=== PATIENT | male | born 1965 | race Caucasian/White ===

== ENCOUNTER 2017-10-20 08:11 | Emergency (ER) | payer BC, OTHER ==
[2017-10-20 08:28] VITALS: BP 141/86
--- NOTE | 2017-10-20 09:02 | UC ---
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 States nasal congestion making him nauseated. Also with bilateral ear pain. Uncontrollable cough x 4 weeks, congestion x 5 days. " Has h/o sinus infections and sx feel consistent. he was sick for 1 mo and sx all resolved w/o any prescription meds ~ 10 days ago and sx returned severely 4 days ago. no cough now though. b/l eye pain/ congestion. no fevers/wheezing or cough. -amox usually works for him. has humidifier on. uses netti pot daily. 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 [employer] - History of Current Complaint Chief Complaint: UCRespiratory Stated Complaint: SINUS, EARS, SORE THROAT Time Seen by Provider: 10/20/17 08:19 - Allergies/Home Medications Allergies/Adverse Reactions: Allergies Allergy/AdvReac Type Severity Reaction Status Date / Time Pseudoephedrine Allergy Difficulty Verified 10/20/17 08:21 [From Sudafed] Breathing Triprolidine [From Actifed] Allergy Difficulty Verified 10/20/17 08:21 Breathing Home Medications: Home Medications Aspirin [Aspirin 81 MG TAB] 81 mg PO DAILY 10/20/17 [History Confirmed 10/20/17] PMH/Surg Hx/FS Hx/Imm Hx Previously Healthy: Yes Endocrine History: Dyslipidemia - Surgical History Surgical History: Yes Surgery Procedure, Year, and Place: 2010 L knee replaced. 11/18/12 wisdom teeth extraction under anesthesia with pre and post prophylactic abx tx. hernia x 2 - Family History Known Family History: Positive: Diabetes - Social History Alcohol Use: Weekly Substance Use Type: None Smoking Status (MU): Former Smoker Type: Cigarettes Amount Used/How Often: <1 PPD Length of Time of Smoking/Using Tobacco: 14 Years Have You Smoked in the Last Year: No When Did the Patient Quit Smoking/Using Tobacco: 1999 - Immunization History Most Recent Influenza Vaccination: 2017 Most Recent Tetanus Shot: 2009 Review of Systems Constitutional: Negative Skin: Negative Eyes: Negative, Other - pain behind eyes ENT: Sinus Congestion, Sinus Pain/Tenderness Respiratory: Negative Cardiovascular: Negative Gastrointestinal: Negative Genitourinary: Negative Motor: Negative Neurovascular: Negative Musculoskeletal: Negative Neurological: Negative Psychological: Negative Is Patient Immunocompromised?: No All Other Systems Reviewed And Are Negative: Yes Physical Exam Triage Information Reviewed: Yes Appearance: Well-Appearing, No Pain Distress - very pleasant. Vital Signs: Initial Vital Signs Temp 98.2 F 10/20/17 08:23 Pulse 86 10/20/17 08:23 Resp 20 10/20/17 08:23 BP 141/86 10/20/17 08:23 Pulse Ox 95 10/20/17 08:23 Vital Signs Reviewed: Yes Eye Exam: Normal ENT: Positive: Pharyngeal erythema - +PND, Nasal congestion, TMs normal, Sinus tenderness - B/L frontal tenderness Dental Exam: Normal Neck exam: Normal Neck: Positive: Supple, Nontender, No Lymphadenopathy Respiratory Exam: Normal Respiratory: Positive: Lungs clear, Normal breath sounds, No respiratory distress, No accessory muscle use. Negative: Crackles, Rhonchi, Stridor, Wheezing Cardiovascular Exam: Normal Cardiovascular: Positive: RRR, No Murmur, Pulses Normal Abdomen Description: Positive: Nontender, Soft Musculoskeletal Exam: Normal Neurological Exam: Normal Psychological Exam: Normal Skin Exam: Normal UC Diagnostic Evaluation - Laboratory O2 Sat by Pulse Oximetry: 95 Respiratory Course/Dx - Course Course Of Treatment: Discussed that the history of sx resolving and then recurring with sudden onset as he has described is c/w bacterial infection. - Differential Dx/Diagnosis Differential Diagnosis/HQI/PQRI: Bronchitis, Laryngitis, Lower Resp Infection, Sinusitis Provider Diagnoses: Sinusitis Discharge - Discharge Plan Condition: Stable Disposition: HOME Prescriptions: Amoxicillin PO (*) [Amoxicillin 875 MG (*)] 875 mg PO BID #20 tab Patient Education Materials: Sinusitis (ED) Referrals: Non Staff,Doctor [Primary Care Provider] - If Needed Additional Instructions: Make sure to continue to take a probiotic daily while on antibiotics to help prevent a potential complication of antibiotic use called c diff. Some well known brands that can be found OTC are florastor, align and [employer] [facility]. Make sure to complete the entire prescription unless advised otherwise by your health care provider. -Follow up with your PCP JARON Santa if symptoms increase or persist.
== END 2017-10-20 09:08 | disposition home or self-care (01) ==
LOC: UCCORT 08:11
DX: J32.9 Chronic sinusitis, unspecified (principal); E78.5 Hyperlipidemia, unspecified; Z87.891 Personal history of nicotine dependence
CPT/HCPCS: 99212; G0463

== ENCOUNTER 2018-10-14 12:44 | Emergency (ER) | payer BC, OTHER ==
--- NOTE | 2018-10-14 13:28 | UC ---
Throat Pain/Nasal Ernie HPI - HPI Summary HPI Summary: 53 y/o male presents to the urgent care c/o sore throat, sinus congestion, w/ clear nasal discharge, body aches, [place], low grade fever for the past 4 days. Pt reports he has a new grandson that would like to visit, but he wants to make lou he doesn't have the flu or strep. Pt has done Netti pot which has helped relief his congestion. Pain w/ swallowing is 2/10. He took ibuprofen yesterday since temp was 99.6F. Nothing today. Pt denies SOB, wheezing, chest pain, abdominal pain, N/V/D, neck pain or rash. - History of Current Complaint Stated Complaint: SINUS CONGESTION Time Seen by Provider: 10/14/18 13:27 Hx Obtained From: Patient Onset/Duration: Gradual Onset, Lasting Days - 4 days, Still Present Severity: Mild Pain Intensity: 2 Pain Scale Used: 0-10 Numeric Cough: Other: - PND Associated Signs & Symptoms: Positive: Hoarseness, Sinus Discomfort, Nasal Discharge - clear. Negative: Dysphagia, Wheezing, Fever, Vomiting Related History: Seasonal Allergies - Epiglottits Risk Factors Epiglottis Risk Factors: Negative - Allergies/Home Medications Allergies/Adverse Reactions: Allergies Allergy/AdvReac Type Severity Reaction Status Date / Time pseudoephedrine Allergy Unknown Difficulty Verified 10/14/18 13:27 [From Sudafed] Breathing triprolidine [From Actifed] Allergy Unknown Difficulty Verified 10/14/18 13:27 Breathing Home Medications: Home Medications Losartan Potassium [Cozaar] 50 mg PO DAILY 10/14/18 [History Confirmed 10/14/18] PMH/Surg Hx/FS Hx/Imm Hx Previously Healthy: Yes Endocrine History: Dyslipidemia Cardiovascular History: Hypertension - Surgical History Surgical History: Yes Surgery Procedure, Year, and Place: 2010 L knee replaced. 11/18/12 wisdom teeth extraction under anesthesia with pre and post prophylactic abx tx. hernia x 2 - Family History Known Family History: Positive: Diabetes - Social History Occupation: Employed Full-time Lives: With Family Alcohol Use: Weekly Substance Use Type: None Smoking Status (MU): Former Smoker Type: Cigarettes Amount Used/How Often: <1 PPD Length of Time of Smoking/Using Tobacco: 14 Years Have You Smoked in the Last Year: No When Did the Patient Quit Smoking/Using Tobacco: 1999 - Immunization History Most Recent Influenza Vaccination: 2017 Most Recent Tetanus Shot: 2009 Review of Systems All Other Systems Reviewed And Are Negative: Yes Constitutional: Positive: Other - body aches Skin: Positive: Negative Eyes: Positive: Negative ENT: Positive: Sore Throat, Nasal Discharge - clear, Sinus Congestion, Sinus Pain/Tenderness, Other - PND Respiratory: Positive: Negative Cardiovascular: Positive: Negative Gastrointestinal: Positive: Negative Genitourinary: Positive: Negative Motor: Positive: Negative Neurovascular: Positive: Negative Musculoskeletal: Positive: Myalgia Neurological: Positive: Negative Psychological: Positive: Negative Is Patient Immunocompromised?: No Physical Exam - Summary Physical Exam Summary: VITAL SIGNS: Reviewed. GENERAL: Patient is a well developed and nourished obese male who is sitting comfortable in the examining table. Patient is not in any acute respiratory distress. HEAD AND FACE: No signs of trauma. No ecchymosis, hematomas or skull depressions. No sinus tenderness. EYES: PERRLA, EOMI x 2, No injected conjunctiva, no nystagmus. No photophobia. EARS: Hearing grossly intact. Ear canals and tympanic membranes are within normal limits. Nose: edematous and erythematous nasal mucosa w/ clear nasal discharge. MOUTH: Positive no erythema, no tonsillar enlargement. Uvula in midline. NECK: Supple, trachea is midline, Positive anterior cervical lymphadenopathy, no JVD, no carotid bruit, no c-spine tenderness, neck with full ROM. No meningeal signs, no Kernig's or brudzinskis signs. CHEST: Symmetric, no tenderness at palpation LUNGS: Clear to auscultation bilaterally. No wheezing or crackles. CVS: Regular rate and rhythm, S1 and S2 present, no murmurs or gallops appreciated. ABDOMEN: Soft, non-tender. No signs of distention. No rebound no guarding, and no masses palpated. Bowel sounds are normal. EXTREMITIES: FROM in all major joints, no edema, no cyanosis or clubbing. NEURO: Alert and oriented x 3. No acute neurological deficits. Speech is normal and follows commands. SKIN: Dry and warm Triage Information Reviewed: Yes Throat Pain/Nasal Course/Dx - Course Course Of Treatment: 53 y/o male presents to the urgent care c/o sore throat, sinus congestion, w/ clear nasal discharge, body aches, [place], low grade fever for the past 4 days. Pt reports he has a new grandson that would like to visit, but he wants to make lou he doesn't have the flu or strep. Pt has done Netti pot which has helped relief his congestion. Pain w/ swallowing is 2/10. He took ibuprofen yesterday since temp was 99.6F. Nothing today. Pt denies SOB, wheezing , chest pain, abdominal pain, N/V/D, neck pain or rash. Hx obtained. Rapid strep ordered, result: negative. Influenza A&B=negative. Pt w/ URI on examination.Pt advised to continue taking ibuprofen PO and emergency to alleviates symptoms of pain and swelling. Advised on hand washing to avoid spreading. Pt advised to rest, eat well and avoid strenuous exercise. If symptoms do not improve or worsen advised to return to the urgent care or f/u with PCP for further evaluation and treatment.Pt's BP is elevated today advised to decrease salt in diet, monitor BP and f/u with PCP for further management. Pt understood and agreed - Differential Dx/Diagnosis Differential Diagnosis/HQI/PQRI: Laryngitis, Mononucleosis, Pharyngitis, Sinusitis, Tonsillitis, URI Provider Diagnosis: Upper respiratory infection Discharge - Sign-Out/Discharge Documenting (check all that apply): Patient Departure - D/C home All imaging exams completed and their final reports reviewed: No Studies - Discharge Plan Condition: Stable Disposition: HOME Patient Education Materials: Upper Respiratory Infection (ED), Low-Sodium Diet (ED) Referrals: [facility] [Outside] - 3 Days Additional Instructions: 1-Please continue taking ibuprofen PO q6-8hrs prn as instructed after meals to alleviate pain and swelling. Increase fluid intake, eat well, rest and avoid strenuous exercise. Take Vitamin C 2-If symptoms do not improve or worsen please return to the urgent care or f/u with your PCP 3 days for further evaluation and treatment. 3- Your BP is elevated today. please decrease salt in your diet, monitor BP and if it continues to be elevated please f/u with your PCP for further management - Billing Disposition and Condition Condition: STABLE Disposition: Home
[2018-10-14 13:37] VITALS: BP 144/81
[2018-10-14] MEDS ORDERED: Ibuprofen TAB* 400 MG PO ONE (13:50)
== END 2018-10-14 14:21 | disposition home or self-care (01) ==
LOC: UCCORT 12:44
DX: J06.9 Acute upper respiratory infection, unspecified (principal); Z87.891 Personal history of nicotine dependence; Z88.8 Allergy status to other drugs, medicaments and biological substances; I10 Essential (primary) hypertension
CPT/HCPCS: 87651; 99212; A9270-GY; G0463

== ENCOUNTER 2018-10-19 07:07 | Emergency (ER) | payer BC, OTHER ==
[2018-10-19 07:28] VITALS: BP 141/83
--- NOTE | 2018-10-19 08:16 | ED ---
Respiratory - HPI Summary HPI Summary: Almost one week of sinus congestion and cough and post nasal drip. Now there is right ear pain and he wonders if there is bacterial infection. No recent fevers. No prior sinus disease or prior ear surgery. - History of Current Complaint Chief Complaint: UCRespiratory Stated Complaint: SINUS COMPLAINT Time Seen by Provider: 10/19/18 07:17 Hx Obtained From: Patient Onset/Duration: Gradual Onset, Lasting Days, Still Present Initial Severity: Moderate Current Severity: Moderate Pain Intensity: 1 Character: Cough (Nonproductive) Sputum Amount: Scant Sputum Color: White Aggravating Factor(s): URI Alleviating Factor(s): Rest Associated Signs and Symptoms: URI, Nasal Congestion, Sinus Discomfort - Allergy/Home Medications Allergies/Adverse Reactions: Allergies Allergy/AdvReac Type Severity Reaction Status Date / Time pseudoephedrine Allergy Unknown Difficulty Verified 10/19/18 07:21 [From Sudafed] Breathing triprolidine [From Actifed] Allergy Unknown Difficulty Verified 10/19/18 07:21 Breathing PMH/Surg Hx/FS Hx/Imm Hx Previously Healthy: No - htn Cardiovascular History: Reports: Hx Hypertension - Surgical History Surgery Procedure, Year, and Place: 2010 L knee replaced; R TKA. 11/18/12 wisdom teeth extraction under anesthesia with pre and post prophylactic abx tx. hernia x 2 Infectious Disease History: No Infectious Disease History: Denies: Traveled Outside the [place] in Last 30 Days - Family History Known Family History: Positive: Diabetes - Social History Occupation: Employed Full-time Lives: With Family Alcohol Use: Weekly Substance Use Type: Reports: None Smoking Status (MU): Former Smoker Type: Cigarettes Amount Used/How Often: <1 PPD Length of Time of Smoking/Using Tobacco: 14 Years Have You Smoked in the Last Year: No Review of Systems Constitutional: Negative Negative: Fever, Chills, Fatigue Positive: Ear Ache, Nasal Discharge Positive: Cough All Other Systems Reviewed And Are Negative: Yes Physical Exam Triage Information Reviewed: Yes Vital Signs On Initial Exam: Initial Vitals Temp Pulse Resp BP Pulse Ox 98.1 F 86 16 141/83 93 10/19/18 07:22 10/19/18 07:22 10/19/18 07:22 10/19/18 07:22 10/19/18 07:22 Vital Signs Reviewed: Yes Appearance: Positive: Well-Appearing, No Pain Distress, Well-Nourished Skin: Positive: Warm, Dry Head/Face: Positive: Normal Head/Face Inspection Eyes: Positive: Normal, EOMI, SOTERO, Conjunctiva Clear. Negative: Conjunctiva Inflammed, Discharge ENT: Positive: Normal ENT inspection, Hearing grossly normal, Pharynx normal, Nasal congestion, TM bulging, Uvula midline. Negative: Pharyngeal erythema, Nasal drainage, TM dull, TM red, Tonsillar swelling, Tonsillar exudate, Trismus , Muffled voice, Sinus tenderness Neck: Positive: Supple, Nontender, No Lymphadenopathy. Negative: Nuchal Rigidity Respiratory/Lung Sounds: Positive: Breath Sounds Present. Negative: Decreased Breath Sounds, Rales, Rhonchi, Subcutaneous Emphysema Cardiovascular: Positive: RRR. Negative: Murmur, Rub, Tachycardia Abdomen Description: Positive: No Organomegaly, Soft. Negative: Distended, Guarding Musculoskeletal: Positive: Normal Neurological: Positive: Normal, Sensory/Motor Intact, Alert, Oriented to Person Place, Time AVPU Assessment: Alert Diagnostics - Vital Signs Vital Signs Temp Pulse Resp BP Pulse Ox 10/19/18 07:22 98.1 F 86 16 141/83 93 - Laboratory Lab Statement: Any lab studies that have been ordered have been reviewed, and results considered in the medical decision making process. Disposition - Diagnoses Provider Diagnoses: Upper respiratory infection, viral, Ear pain, right Discharge - Sign-Out/Discharge Documenting (check all that apply): Patient Departure All imaging exams completed and their final reports reviewed: No Studies - Discharge Plan Condition: Good Disposition: HOME Prescriptions: Amoxicillin PO (*) [Amoxicillin 500 MG CAP*] 500 mg PO TID #30 cap Fluticasone NASAL SPRAY 50MCG* [Flonase NASAL SPRAY 50MCG*] 2 spray BOTH NARES DAILY #1 btl Patient Education Materials: Upper Respiratory Infection (ED) Referrals: No Primary Care Phys,NOPCP [Primary Care Provider] - Additional Instructions: REturn for any worsening of your symptoms. - Billing Disposition and Condition Condition: GOOD Disposition: Home
== END 2018-10-19 08:18 | disposition home or self-care (01) ==
LOC: UCCORT 07:07
DX: J06.9 Acute upper respiratory infection, unspecified (principal); H92.01 Otalgia, right ear; I10 Essential (primary) hypertension; Z87.891 Personal history of nicotine dependence
CPT/HCPCS: 99212; G0463